=== PATIENT | male | born 1955 | race Asian ===

== ENCOUNTER 2018-08-29 08:07 | Inpatient (IN) | payer BC ==
[2018-08-29 09:19] LABS: ADD MAN DIFF? NO
[2018-08-29 09:24] LABS: WHITE BLOOD COUNT 8.4 10^3/ul (4.8-10.8)
[2018-08-29 09:24] LABS: BASOPHIL # 0.1 10^3/ul (0.0-0.1); BASOPHILS % 1.3 % (0.0-2.0); EOSINOPHILS # 0.6 10^3/ul (0.0-0.5); HEMATOCRIT 36.5 % (42.0-52.0); HEMOGLOBIN 11.3 g/dl (14.0-18.0); LYMPHOCYTES # 1.9 10^3/ul (0.8-2.9); MEAN CORPUSCULAR HEMOGLOBIN 22.5 pg (29.0-33.0); MEAN CORPUSCULAR VOLUME 72.7 fl (82.0-101.0); MEAN PLATELET VOLUME 9.8 fl (7.4-10.4); MONOCYTE # 0.5 10^3/ul (0.3-0.9); MONOCYTES % 6.3 % (0.0-11.0); NEUTROPHIL # 5.3 10^3/ul (1.6-7.5); NEUTROPHILS % 63.2 % (39.0-77.0); PLATELET COUNT 386 10^3/UL (140-415); RED BLOOD COUNT 5.02 10^6/ul (4.70-6.10); RED CELL DISTRIBUTION WIDTH 16.7 % (11.5-14.5)
[2018-08-29 09:42] LABS: INR 0.86; PARTIAL THROMBOPLASTIN TIME 33.5 Sec (23.0-35.0); PROTIME 11.8 Sec (11.9-14.9); PT RATIO 0.9
[2018-08-29 10:03] LABS: ANION GAP 12 (5-13); BLOOD UREA NITROGEN 18 mg/dl (7-20); CALCIUM 9.4 mg/dl (8.4-10.2); CARBON DIOXIDE 29 mmol/L (21-31); CHLORIDE 100 mmol/L (97-110); CHOL/HDL RATIO 6.1 RATIO; CHOLESTEROL 197 mg/dl (100-200); Estimated GFR 46 mL/min (>60); GLUCOSE 116 mg/dl (70-220); HDL CHOLESTEROL 32 mg/dl (30-78); LDL CHOLESTEROL,CALCULATED 123 mg/dl; SODIUM 141 mmol/L (135-144); TRIGLYCERIDES 211 mg/dl (0-149)
[2018-08-29 10:18] LABS: CREATININE 1.54 mg/dl (0.61-1.24)
[2018-08-29] MEDS ORDERED: MIDAZOLAM 1 MG/ML 2 ML INJ (11:13)
[2018-08-29] MEDS ORDERED: HEPARIN 1000 UNITS/ML 10 ML INJ ×2 (11:13)
[2018-08-29] MEDS ORDERED: FENTAnyl 50 MCG/ML VIAL (11:13)
[2018-08-29] MEDS ORDERED: LIDOCAINE 1% (MDV) 20 ML INJ (11:13)
[2018-08-29] MEDS ORDERED: VERAPAMIL 5 MG INJ (11:13)
[2018-08-29] MEDS ORDERED: NITROGLYCERIN (IC) 100 MCG/ML INJ (11:13)
[2018-08-29] MEDS ORDERED: IODIXANOL LOCM 100 ML BTL (11:13)
[2018-08-29] MEDS: SOD CHLORIDE 0.9% 1,000 ML IV (15:23)
[2018-08-29] MEDS: METOPROLOL (XL) 25 MG TAB PO (20:55)
[2018-08-29] MEDS: ATORVASTATIN 40 MG TAB PO (20:55)
[2018-08-30] MEDS: METOPROLOL (XL) 25 MG TAB PO (08:36)
[2018-08-30] MEDS: AMLODIPINE 10 MG TAB PO (08:37)
[2018-08-30 16:37] LABS: ADD MAN DIFF? NO
[2018-08-30 16:39] LABS: WHITE BLOOD COUNT 9.8 10^3/ul (4.8-10.8)
[2018-08-30 16:39] LABS: BASOPHIL # 0.1 10^3/ul (0.0-0.1); EOSINOPHILS # 0.4 10^3/ul (0.0-0.5); EOSINOPHILS % 3.7 % (0.0-7.0); HEMATOCRIT 36.9 % (42.0-52.0); HEMOGLOBIN 11.6 g/dl (14.0-18.0); LYMPHOCYTES # 2.1 10^3/ul (0.8-2.9); LYMPHOCYTES % 21.7 % (15.0-51.0); MEAN CORPUSCULAR HEMOGLOBIN 22.6 pg (29.0-33.0); MEAN CORPUSCULAR HGB CONC 31.4 g/dl (32.0-37.0); MEAN CORPUSCULAR VOLUME 71.9 fl (82.0-101.0); MEAN PLATELET VOLUME 9.7 fl (7.4-10.4); MONOCYTE # 0.6 10^3/ul (0.3-0.9); MONOCYTES % 6.3 % (0.0-11.0); NEUTROPHIL # 6.5 10^3/ul (1.6-7.5); NEUTROPHILS % 66.8 % (39.0-77.0); PLATELET COUNT 374 10^3/UL (140-415); RED BLOOD COUNT 5.13 10^6/ul (4.70-6.10); RED CELL DISTRIBUTION WIDTH 16.4 % (11.5-14.5)
[2018-08-30 17:00] LABS: ANION GAP 9 (5-13); BLOOD UREA NITROGEN 18 mg/dl (7-20); CALCIUM 9.2 mg/dl (8.4-10.2); CARBON DIOXIDE 27 mmol/L (21-31); CHLORIDE 102 mmol/L (97-110); CREATININE 1.43 mg/dl (0.61-1.24); Estimated GFR 50 mL/min (>60); GLUCOSE 99 mg/dl (70-220); POTASSIUM 3.6 mmol/L (3.5-5.1); SODIUM 138 mmol/L (135-144)
[2018-08-30] MEDS: ATORVASTATIN 40 MG TAB PO (20:57)
[2018-08-31 06:57] LABS: ADD MAN DIFF? NO
[2018-08-31 07:04] LABS: WHITE BLOOD COUNT 10.5 10^3/ul (4.8-10.8)
[2018-08-31 07:04] LABS: BASOPHIL # 0.1 10^3/ul (0.0-0.1); BASOPHILS % 1.1 % (0.0-2.0); EOSINOPHILS # 0.5 10^3/ul (0.0-0.5); EOSINOPHILS % 5.1 % (0.0-7.0); HEMATOCRIT 34.7 % (42.0-52.0); HEMOGLOBIN 11.1 g/dl (14.0-18.0); LYMPHOCYTES # 2.1 10^3/ul (0.8-2.9); LYMPHOCYTES % 20.1 % (15.0-51.0); MEAN CORPUSCULAR HEMOGLOBIN 22.9 pg (29.0-33.0); MEAN CORPUSCULAR VOLUME 71.7 fl (82.0-101.0); MEAN PLATELET VOLUME 10.6 fl (7.4-10.4); MONOCYTE # 0.8 10^3/ul (0.3-0.9); MONOCYTES % 7.3 % (0.0-11.0); NEUTROPHILS % 66.1 % (39.0-77.0); PLATELET COUNT 358 10^3/UL (140-415); RED BLOOD COUNT 4.84 10^6/ul (4.70-6.10); RED CELL DISTRIBUTION WIDTH 16.6 % (11.5-14.5)
[2018-08-31 07:37] LABS: ANION GAP 10 (5-13); BLOOD UREA NITROGEN 19 mg/dl (7-20); CALCIUM 8.9 mg/dl (8.4-10.2); CARBON DIOXIDE 26 mmol/L (21-31); CHLORIDE 102 mmol/L (97-110); CREATININE 1.61 mg/dl (0.61-1.24); Estimated GFR 44 mL/min (>60); GLUCOSE 106 mg/dl (70-220); POTASSIUM 3.7 mmol/L (3.5-5.1); SODIUM 138 mmol/L (135-144)
[2018-08-31] MEDS: METOPROLOL (XL) 25 MG TAB PO (08:07)
[2018-08-31] MEDS: AMLODIPINE 10 MG TAB PO (08:07)
[2018-08-31] MEDS: SOD CHLORIDE 0.9% 1,000 ML IV (17:17)
[2018-08-31] MEDS: ATORVASTATIN 40 MG TAB PO (22:21)
[2018-09-01] MEDS ORDERED: PHENYLephrine 20MG IN 250 ML 250 ML IV (06:30)
[2018-09-01] MEDS ORDERED: EPINEPHrine 4 MG in DEXTROSE 5% 246 ML IV (06:30)
[2018-09-01] MEDS ORDERED: INSULIN HUMAN REGULAR 100 UNIT in SOD CHLORIDE 0.9% 99 ML IV (06:30)
[2018-09-01] MEDS ORDERED: DOPamine-D5W 1.6 MG/ML 250 ML (07:00)
[2018-09-01] MEDS ORDERED: INSULIN REGULAR, HUMAN 100 UNIT/1 ML 3ML VIAL (07:00)
[2018-09-01] MEDS ORDERED: NITROGLYCERIN 50 MG/D5W 250 ML BTL (07:00)
[2018-09-01] MEDS: VANCOMYCIN 1 GM INJ (07:12)
[2018-09-01] MEDS: PAPAVERINE 60 MG INJ (07:12)
[2018-09-01] MEDS: HEPARIN 1000 UNITS/ML 10 ML INJ (07:13)
[2018-09-01] MEDS ORDERED: MIDAZOLAM 5 ML ×2 (07:37→09:50)
[2018-09-01] MEDS ORDERED: PHENYLephrine (100 MCG/ML) 5ML SYG ×2 (07:40→10:13)
[2018-09-01] MEDS ORDERED: HEPARIN 1000 UNITS/ML 10 ML INJ ×3 (07:43→09:59)
[2018-09-01] MEDS ORDERED: POTASSIUM CHLORIDE 40 MEQ INJ (07:43)
[2018-09-01] MEDS ORDERED: CA CHLORIDE 10% 10 ML SYRINGE (07:44)
[2018-09-01] MEDS ORDERED: ALBUMIN HUMAN 25% 100 ML (07:44)
[2018-09-01] MEDS ORDERED: MAGNESIUM SULFATE (MG) 50% 10 ML INJ (07:44)
[2018-09-01] MEDS ORDERED: LIDOCAINE 100 MG SYRINGE (07:44)
[2018-09-01] MEDS ORDERED: PHENYLephrine 10 MG INJ ×2 (07:45)
[2018-09-01] MEDS ORDERED: MANNITOL 20% 500 ML (07:45)
[2018-09-01] MEDS ORDERED: NA BICARBONATE 8.4% 50 ML SYG (07:45)
[2018-09-01] MEDS ORDERED: AMINOCAPROIC ACID 5 GM INJ (07:45)
[2018-09-01] MEDS ORDERED: CEFAZOLIN 1 GM INJ ×2 (08:26→11:32)
[2018-09-01] MEDS: AMLODIPINE 10 MG TAB PO (09:00)
[2018-09-01] MEDS: METOPROLOL (XL) 25 MG TAB PO (09:00)
[2018-09-01] MEDS ORDERED: FUROSEMIDE 20 MG INJ ×3 (11:17→13:14)
[2018-09-01 11:29] LABS: IMMEDIATE SPIN CROSSMATCH 1
[2018-09-01] MEDS ORDERED: PROTAMINE 250 MG INJ (12:55)
[2018-09-01 12:59] LABS: TYPE AND SCREEN 1
[2018-09-01 12:59] LABS: IMMEDIATE SPIN CROSSMATCH 1 6
[2018-09-01] MEDS ORDERED: ETOMIDATE 20 MG INJ (14:19)
[2018-09-01] MEDS ORDERED: ROCURONIUM 50 MG INJ (14:19)
[2018-09-01] MEDS ORDERED: LIDOCAINE 2% (SDV) 5 ML INJ (14:19)
[2018-09-01] MEDS ORDERED: morphine (1 MG/ML) 10ML SYRINGE IV ×2 (15:00)
[2018-09-01] MEDS ORDERED: MEPERIDINE 25 MG INJ IV (15:00)
[2018-09-01] MEDS ORDERED: ONDANSETRON 4 MG INJ IV (15:00)
[2018-09-01] MEDS ORDERED: DIPHENHYDRAMINE 50 MG INJ IV (15:00)
[2018-09-01] MEDS ORDERED: ACETAMINOPHEN 325 MG TAB PO (15:30)
[2018-09-01 15:46] LABS: ADD MAN DIFF? NO
[2018-09-01 15:49] LABS: ABNORMAL IP MESSAGE 1; HEMATOCRIT 34.4 % (42.0-52.0); HEMOGLOBIN 11.4 g/dl (14.0-18.0); MEAN CORPUSCULAR HEMOGLOBIN 24.6 pg (29.0-33.0); MEAN CORPUSCULAR HGB CONC 33.1 g/dl (32.0-37.0); MEAN CORPUSCULAR VOLUME 74.1 fl (82.0-101.0); MEAN PLATELET VOLUME 9.3 fl (7.4-10.4); PLATELET COUNT 223 10^3/UL (140-415); POSITIVE DIFF @See below; RED BLOOD COUNT 4.64 10^6/ul (4.70-6.10); RED CELL DISTRIBUTION WIDTH 17.7 % (11.5-14.5)
[2018-09-01 15:49] LABS: WHITE BLOOD COUNT 27.1 10^3/ul (4.8-10.8)
[2018-09-01 15:54] LABS: MODE VENT - AC; MetHgb Mixed Venous 0.3 %; Mixed Venous COHb 0.3 %; Mixed Venous Fraction OxyHgb 77.6 %; Mixed Venous Oxygen Sat 78.1 mmHG (65.0-75.0); Mixed Venous Total Hemglobin 12.4 g/dl; Sample Type BLMV; Site PAL
[2018-09-01 15:56] LABS: AADO2 Arterial 307.6 mmHg (7.0-24.0); Arterial Base Excess 1.8 mmol/L (-3.0-3); Arterial Blood Gas Oxygen Sat 98.8 mmHG (95.0-98.0); Arterial COHb 0.4 % (0.0-3.0); Arterial Fraction of Oxyhgb 97.9 % (93.0-99.0); Arterial HCO3 26.1 mmol/L (22.0-26.0); Arterial MetHb 0.5 % (0.0-1.5); MODE VENT - AC; Site A-Line
[2018-09-01 16:09] LABS: INR 1.25; PROTIME 15.8 Sec (11.9-14.9); PT RATIO 1.2
[2018-09-01 16:10] LABS: PARTIAL THROMBOPLASTIN TIME 32.6 Sec (23.0-35.0)
[2018-09-01 16:33] LABS: ANION GAP 12 (5-13); BLOOD UREA NITROGEN 20 mg/dl (7-20); CALCIUM 8.9 mg/dl (8.4-10.2); CARBON DIOXIDE 26 mmol/L (21-31); CHLORIDE 105 mmol/L (97-110); CREATININE 1.51 mg/dl (0.61-1.24); Estimated GFR 47 mL/min (>60); GLUCOSE 55 mg/dl (70-220); MAGNESIUM 3.3 mg/dl (1.7-2.5); POTASSIUM 3.3 mmol/L (3.5-5.1); SODIUM 143 mmol/L (135-144)
[2018-09-01] MEDS: POTASSIUM CHLORIDE 40 MEQ, CALCIUM CHLORIDE 10% 1 GM in DEXTROSE 5%-0.225% NACL 1,000 ML IV (16:56)
[2018-09-01] MEDS: POTASSIUM CHLORIDE 50 ML IVPB ×3 (16:56→19:12)
[2018-09-01 17:00] LABS: ANISOCYTOSIS 1+ (0-0); BAND NEUTROPHILS % (M) 4 % (0-4); BURR CELLS 1+ (0-0); EOSINOPHILS % (M) 1 % (0-7); GIANT THROMBO% (M) 1 % (0-0); HYPOCHROMASIA 1+ (0-0); LYMPHOCYTES #M 2.9 10^3/ul (0.8-2.9); LYMPHOCYTES % (M) 11 % (15-51); MONOCYTE #M 3.2 10^3/ul (0.3-0.9); MONOCYTES % (M) 12 % (0-11); PLATELET MORPHOLOGY COMMENT @See below; POIKILOCYTOSIS 1+ (0-0); POLYCHROMASIA 1+ (0-0); SCHISTOCYTES 1+ (0-0); SEG NEUT #M 19.8 10^3/ul (1.6-7.5); SEGMENTED NEUTROPHILS (M) % 72 % (39-77); SMUDGE%M 2 % (0-0); SPHEROCYTES 1+ (0-0)
[2018-09-01] MEDS: DOPamine-D5W 1.6 MG/ML 250 ML IV (17:21)
[2018-09-01] MEDS: morphine 4 MG/ML VIAL IV (18:17)
[2018-09-01] MEDS: NITROGLYCERIN 50 MG/D5W (PMX) 250 ML IV (18:20)
[2018-09-01] MEDS ORDERED: NORepinephrine 8MG/250 ML (PMX 250 ML (18:37)
[2018-09-01] MEDS: CEFAZOLIN 1 GM/50 ML (PMX) 50 ML IVPB (19:30)
[2018-09-01] MEDS: FAMOTIDINE 20 MG INJ IV (20:15)
[2018-09-01] MEDS: ATORVASTATIN 40 MG TAB PO (21:00)
[2018-09-02] MEDS: ACETAMINOPHEN 650 MG SUPP PR ×2 (00:02→01:00)
[2018-09-02 00:52] LABS: POTASSIUM 4.9 mmol/L (3.5-5.1)
[2018-09-02 01:04] LABS: ADD MAN DIFF? NO
[2018-09-02 01:09] LABS: BASOPHIL # 0.1 10^3/ul (0.0-0.1); BASOPHILS % 0.3 % (0.0-2.0); HEMATOCRIT 32.6 % (42.0-52.0); HEMOGLOBIN 10.6 g/dl (14.0-18.0); LYMPHOCYTES # 0.6 10^3/ul (0.8-2.9); LYMPHOCYTES % 3.8 % (15.0-51.0); MEAN CORPUSCULAR HEMOGLOBIN 24.1 pg (29.0-33.0); MEAN CORPUSCULAR HGB CONC 32.5 g/dl (32.0-37.0); MEAN CORPUSCULAR VOLUME 74.3 fl (82.0-101.0); MEAN PLATELET VOLUME 10.3 fl (7.4-10.4); MONOCYTE # 1.3 10^3/ul (0.3-0.9); MONOCYTES % 8.2 % (0.0-11.0); NEUTROPHIL # 14.1 10^3/ul (1.6-7.5); NEUTROPHILS % 87.2 % (39.0-77.0); PLATELET COUNT 216 10^3/UL (140-415); RED BLOOD COUNT 4.39 10^6/ul (4.70-6.10); RED CELL DISTRIBUTION WIDTH 17.2 % (11.5-14.5)
[2018-09-02 01:09] LABS: WHITE BLOOD COUNT 16.2 10^3/ul (4.8-10.8)
[2018-09-02] MEDS: ALBUMIN HUMAN 5% 250 ML IV ×3 (01:16→13:00)
[2018-09-02 01:18] LABS: ANION GAP 7 (5-13); BLOOD UREA NITROGEN 18 mg/dl (7-20); CALCIUM 8.9 mg/dl (8.4-10.2); CARBON DIOXIDE 29 mmol/L (21-31); CHLORIDE 103 mmol/L (97-110); CREATININE 1.57 mg/dl (0.61-1.24); Estimated GFR 45 mL/min (>60); GLUCOSE 201 mg/dl (70-220); MAGNESIUM 2.2 mg/dl (1.7-2.5); POTASSIUM 4.9 mmol/L (3.5-5.1); SODIUM 139 mmol/L (135-144)
[2018-09-02] MEDS: CEFAZOLIN 1 GM/50 ML (PMX) 50 ML IVPB ×2 (03:17→11:36)
[2018-09-02] MEDS: POTASSIUM CHLORIDE 40 MEQ, CALCIUM CHLORIDE 10% 1 GM in DEXTROSE 5%-0.225% NACL 1,000 ML IV ×3 (03:19→21:36)
[2018-09-02] MEDS: DOPamine-D5W 1.6 MG/ML 250 ML IV ×2 (03:31→09:33)
[2018-09-02 04:42] LABS: AADO2 Arterial 75.3 mmHg (7.0-24.0); Arterial Base Excess 2.2 mmol/L (-3.0-3); Arterial Blood Gas Oxygen Sat 97.2 mmHG (95.0-98.0); Arterial COHb 0 % (0.0-3.0); Arterial Fraction of Oxyhgb 96.8 % (93.0-99.0); Arterial HCO3 25.7 mmol/L (22.0-26.0); Arterial MetHb 0.4 % (0.0-1.5); Arterial pCO2 36.3 mmhg (35-45); MODE VENT - AC; Site A-Line
[2018-09-02 05:13] LABS: ADD MAN DIFF? NO
[2018-09-02 05:19] LABS: BASOPHILS % 0.2 % (0.0-2.0); HEMATOCRIT 31.7 % (42.0-52.0); HEMOGLOBIN 10.5 g/dl (14.0-18.0); LYMPHOCYTES # 0.7 10^3/ul (0.8-2.9); LYMPHOCYTES % 4.7 % (15.0-51.0); MEAN CORPUSCULAR HEMOGLOBIN 24.6 pg (29.0-33.0); MEAN CORPUSCULAR HGB CONC 33.1 g/dl (32.0-37.0); MEAN CORPUSCULAR VOLUME 74.4 fl (82.0-101.0); MEAN PLATELET VOLUME 11.5 fl (7.4-10.4); MONOCYTE # 1.4 10^3/ul (0.3-0.9); MONOCYTES % 8.7 % (0.0-11.0); NEUTROPHIL # 13.5 10^3/ul (1.6-7.5); PLATELET COUNT 213 10^3/UL (140-415); RED BLOOD COUNT 4.26 10^6/ul (4.70-6.10); RED CELL DISTRIBUTION WIDTH 17.6 % (11.5-14.5)
[2018-09-02 05:19] LABS: WHITE BLOOD COUNT 15.7 10^3/ul (4.8-10.8)
[2018-09-02 05:38] LABS: INR 1.11; PROTIME 14.4 Sec (11.9-14.9); PT RATIO 1.1
[2018-09-02 05:39] LABS: PARTIAL THROMBOPLASTIN TIME 34.8 Sec (23.0-35.0)
[2018-09-02 05:54] LABS: ANION GAP 8 (5-13); BLOOD UREA NITROGEN 18 mg/dl (7-20); CARBON DIOXIDE 29 mmol/L (21-31); CHLORIDE 103 mmol/L (97-110); CREATININE 1.61 mg/dl (0.61-1.24); Estimated GFR 44 mL/min (>60); GLUCOSE 215 mg/dl (70-220); MAGNESIUM 2.1 mg/dl (1.7-2.5); POTASSIUM 5.1 mmol/L (3.5-5.1); SODIUM 140 mmol/L (135-144)
[2018-09-02] MEDS: METOPROLOL (XL) 25 MG TAB PO (08:53)
[2018-09-02] MEDS: AMLODIPINE 10 MG TAB PO (08:53)
[2018-09-02] MEDS: FAMOTIDINE 20 MG TAB PO (08:55)
[2018-09-02] MEDS: FAMOTIDINE 20 MG INJ IV (08:55)
[2018-09-02] MEDS: ONDANSETRON 4 MG INJ IV (10:27)
[2018-09-02 12:44] LABS: POTASSIUM 4.8 mmol/L (3.5-5.1)
[2018-09-02] MEDS: morphine 4 MG/ML VIAL IV ×3 (16:29→22:45)
[2018-09-02 16:49] LABS: HEMATOCRIT 28.9 % (42.0-52.0)
[2018-09-02 16:54] LABS: INR 1.27; PT RATIO 1.3
[2018-09-02 16:55] LABS: PARTIAL THROMBOPLASTIN TIME 37.7 Sec (23.0-35.0)
[2018-09-02] MEDS ORDERED: LORATADINE 10 MG TAB PO (20:00)
[2018-09-02] MEDS: ASPIRIN 81 MG TAB PO (20:11)
[2018-09-02] MEDS: ATORVASTATIN 40 MG TAB PO (20:11)
[2018-09-03] MEDS: morphine 4 MG/ML VIAL IV ×5 (00:54→17:38)
[2018-09-03 04:51] LABS: ADD MAN DIFF? NO
[2018-09-03 04:54] LABS: WHITE BLOOD COUNT 17.1 10^3/ul (4.8-10.8)
[2018-09-03 04:54] LABS: ABNORMAL IP MESSAGE 1; BASOPHIL # 0.1 10^3/ul (0.0-0.1); BASOPHILS % 0.5 % (0.0-2.0); EOSINOPHILS % 0.2 % (0.0-7.0); HEMATOCRIT 28.3 % (42.0-52.0); HEMOGLOBIN 9.3 g/dl (14.0-18.0); LYMPHOCYTES # 1.5 10^3/ul (0.8-2.9); LYMPHOCYTES % 8.8 % (15.0-51.0); MEAN CORPUSCULAR HEMOGLOBIN 24.9 pg (29.0-33.0); MEAN CORPUSCULAR HGB CONC 32.9 g/dl (32.0-37.0); MEAN CORPUSCULAR VOLUME 75.9 fl (82.0-101.0); MEAN PLATELET VOLUME 10.4 fl (7.4-10.4); MONOCYTE # 1.7 10^3/ul (0.3-0.9); MONOCYTES % 9.9 % (0.0-11.0); NEUTROPHIL # 13.7 10^3/ul (1.6-7.5); PLATELET COUNT 145 10^3/UL (140-415); POSITIVE DIFF @See below; RED BLOOD COUNT 3.73 10^6/ul (4.70-6.10); RED CELL DISTRIBUTION WIDTH 18.1 % (11.5-14.5)
[2018-09-03 05:23] LABS: ANION GAP 12 (5-13); BLOOD UREA NITROGEN 21 mg/dl (7-20); CARBON DIOXIDE 29 mmol/L (21-31); CHLORIDE 101 mmol/L (97-110); Estimated GFR 44 mL/min (>60); GLUCOSE 140 mg/dl (70-220); POTASSIUM 4.9 mmol/L (3.5-5.1); SODIUM 142 mmol/L (135-144)
[2018-09-03] MEDS: FAMOTIDINE 20 MG INJ IV (08:05)
[2018-09-03] MEDS: FAMOTIDINE 20 MG TAB PO (08:05)
[2018-09-03] MEDS: ASPIRIN 81 MG TAB PO (08:13)
[2018-09-03] MEDS: POTASSIUM CHLORIDE 40 MEQ, CALCIUM CHLORIDE 10% 1 GM in DEXTROSE 5%-0.225% NACL 1,000 ML IV ×2 (10:04→20:19)
[2018-09-03] MEDS: METOPROLOL (XL) 25 MG TAB PO ×2 (10:24→20:07)
[2018-09-03] MEDS: AMLODIPINE 10 MG TAB PO (10:28)
[2018-09-03] MEDS: AMIODARONE 150MG/D5W BOLUS 100 ML IV (11:46)
[2018-09-03] MEDS: ATORVASTATIN 40 MG TAB PO (20:07)
[2018-09-03] MEDS: AMIODARONE 200 MG TAB PO (20:07)
[2018-09-03] MEDS: ACETAMINOPHEN 325 MG TAB PO (20:08)
[2018-09-03 20:21] LABS: ANION GAP 8 (5-13); BLOOD UREA NITROGEN 25 mg/dl (7-20); CALCIUM 8.9 mg/dl (8.4-10.2); CARBON DIOXIDE 29 mmol/L (21-31); CHLORIDE 99 mmol/L (97-110); CREATININE 1.42 mg/dl (0.61-1.24); Estimated GFR 51 mL/min (>60); GLUCOSE 148 mg/dl (70-220); MAGNESIUM 2.3 mg/dl (1.7-2.5); PHOSPHORUS 3.9 mg/dl (2.5-4.9); POTASSIUM 4.7 mmol/L (3.5-5.1); SODIUM 136 mmol/L (135-144)
[2018-09-04 05:03] LABS: ADD MAN DIFF? NO
[2018-09-04 05:08] LABS: BASOPHIL # 0.1 10^3/ul (0.0-0.1); BASOPHILS % 0.7 % (0.0-2.0); EOSINOPHILS # 0.4 10^3/ul (0.0-0.5); EOSINOPHILS % 2.2 % (0.0-7.0); HEMOGLOBIN 9.6 g/dl (14.0-18.0); LYMPHOCYTES # 1.9 10^3/ul (0.8-2.9); LYMPHOCYTES % 12.2 % (15.0-51.0); MEAN CORPUSCULAR HEMOGLOBIN 24.4 pg (29.0-33.0); MEAN CORPUSCULAR VOLUME 76.3 fl (82.0-101.0); MEAN PLATELET VOLUME 11.2 fl (7.4-10.4); MONOCYTE # 1.4 10^3/ul (0.3-0.9); MONOCYTES % 9.1 % (0.0-11.0); NEUTROPHIL # 11.8 10^3/ul (1.6-7.5); NEUTROPHILS % 75.2 % (39.0-77.0); PLATELET COUNT 160 10^3/UL (140-415); RED BLOOD COUNT 3.93 10^6/ul (4.70-6.10); RED CELL DISTRIBUTION WIDTH 17.8 % (11.5-14.5)
[2018-09-04 05:08] LABS: WHITE BLOOD COUNT 15.7 10^3/ul (4.8-10.8)
[2018-09-04 05:33] LABS: ANION GAP 10 (5-13); BLOOD UREA NITROGEN 25 mg/dl (7-20); CALCIUM 8.9 mg/dl (8.4-10.2); CARBON DIOXIDE 29 mmol/L (21-31); CHLORIDE 100 mmol/L (97-110); CREATININE 1.36 mg/dl (0.61-1.24); Estimated GFR 53 mL/min (>60); GLUCOSE 157 mg/dl (70-220); POTASSIUM 4.2 mmol/L (3.5-5.1); SODIUM 139 mmol/L (135-144)
[2018-09-04] MEDS: POTASSIUM CHLORIDE 40 MEQ, CALCIUM CHLORIDE 10% 1 GM in DEXTROSE 5%-0.225% NACL 1,000 ML IV ×2 (06:36→16:58)
[2018-09-04] MEDS: ASPIRIN 81 MG TAB PO (08:23)
[2018-09-04] MEDS: AMIODARONE 200 MG TAB PO ×2 (08:24→21:05)
[2018-09-04] MEDS: AMLODIPINE 5 MG TAB PO (08:24)
[2018-09-04] MEDS: FAMOTIDINE 20 MG TAB PO (08:24)
[2018-09-04] MEDS: FAMOTIDINE 20 MG INJ IV (08:24)
[2018-09-04] MEDS: METOPROLOL (XL) 25 MG TAB PO ×2 (09:00→21:06)
[2018-09-04] MEDS: morphine 4 MG/ML VIAL IV ×2 (10:47→17:29)
[2018-09-04] MEDS ORDERED: ZOLPIDEM 5 MG TAB PO (20:30)
[2018-09-04] MEDS: ATORVASTATIN 40 MG TAB PO (21:05)
[2018-09-05 04:42] LABS: ADD MAN DIFF? NO
[2018-09-05 04:44] LABS: WHITE BLOOD COUNT 14.8 10^3/ul (4.8-10.8)
[2018-09-05 04:44] LABS: BASOPHIL # 0.1 10^3/ul (0.0-0.1); BASOPHILS % 0.8 % (0.0-2.0); EOSINOPHILS # 0.5 10^3/ul (0.0-0.5); HEMATOCRIT 30.5 % (42.0-52.0); HEMOGLOBIN 9.8 g/dl (14.0-18.0); LYMPHOCYTES # 1.8 10^3/ul (0.8-2.9); MEAN CORPUSCULAR HEMOGLOBIN 24.3 pg (29.0-33.0); MEAN CORPUSCULAR HGB CONC 32.1 g/dl (32.0-37.0); MEAN CORPUSCULAR VOLUME 75.5 fl (82.0-101.0); MEAN PLATELET VOLUME 10.8 fl (7.4-10.4); MONOCYTE # 1.4 10^3/ul (0.3-0.9); MONOCYTES % 9.7 % (0.0-11.0); NEUTROPHIL # 10.9 10^3/ul (1.6-7.5); PLATELET COUNT 223 10^3/UL (140-415); RED BLOOD COUNT 4.04 10^6/ul (4.70-6.10); RED CELL DISTRIBUTION WIDTH 17.4 % (11.5-14.5)
[2018-09-05 05:03] LABS: ANION GAP 9 (5-13); BLOOD UREA NITROGEN 22 mg/dl (7-20); CALCIUM 8.5 mg/dl (8.4-10.2); CARBON DIOXIDE 28 mmol/L (21-31); CHLORIDE 101 mmol/L (97-110); CREATININE 1.35 mg/dl (0.61-1.24); Estimated GFR 54 mL/min (>60); GLUCOSE 112 mg/dl (70-220); POTASSIUM 4.1 mmol/L (3.5-5.1); SODIUM 138 mmol/L (135-144)
[2018-09-05] MEDS: METOPROLOL (XL) 25 MG TAB PO ×2 (08:28→21:00)
[2018-09-05] MEDS: AMIODARONE 200 MG TAB PO ×2 (08:30→21:16)
[2018-09-05] MEDS: ASPIRIN 81 MG TAB PO (08:31)
[2018-09-05] MEDS: FAMOTIDINE 20 MG TAB PO (08:31)
[2018-09-05] MEDS: POTASSIUM CHLORIDE 50 ML IVPB ×2 (08:32→09:52)
[2018-09-05 11:19] LABS: HEMOGLOBIN A1C 5.9 % (0-5.9)
[2018-09-05] MEDS: DOCUSATE SODIUM 100 MG CAP PO (15:45)
[2018-09-05] MEDS: AL HYDROX/MG HYDROX/SIMETH 30 ML CUP PO (17:21)
[2018-09-05] MEDS: ATORVASTATIN 40 MG TAB PO (21:15)
[2018-09-06 06:15] LABS: ADD MAN DIFF? NO
[2018-09-06 06:23] LABS: ABNORMAL IP MESSAGE 1; BASOPHIL # 0.1 10^3/ul (0.0-0.1); BASOPHILS % 0.8 % (0.0-2.0); EOSINOPHILS # 0.6 10^3/ul (0.0-0.5); HEMATOCRIT 32.1 % (42.0-52.0); HEMOGLOBIN 10.4 g/dl (14.0-18.0); LYMPHOCYTES # 2.3 10^3/ul (0.8-2.9); LYMPHOCYTES % 14.7 % (15.0-51.0); MEAN CORPUSCULAR HEMOGLOBIN 24.2 pg (29.0-33.0); MEAN CORPUSCULAR HGB CONC 32.4 g/dl (32.0-37.0); MEAN CORPUSCULAR VOLUME 74.8 fl (82.0-101.0); MEAN PLATELET VOLUME 10.9 fl (7.4-10.4); MONOCYTE # 1.6 10^3/ul (0.3-0.9); NEUTROPHIL # 10.9 10^3/ul (1.6-7.5); NEUTROPHILS % 69.9 % (39.0-77.0); PLATELET COUNT 310 10^3/UL (140-415); POSITIVE DIFF @See below; RED BLOOD COUNT 4.29 10^6/ul (4.70-6.10); RED CELL DISTRIBUTION WIDTH 17.7 % (11.5-14.5)
[2018-09-06 06:23] LABS: WHITE BLOOD COUNT 15.5 10^3/ul (4.8-10.8)
[2018-09-06 06:34] LABS: ANION GAP 13 (5-13); BLOOD UREA NITROGEN 22 mg/dl (7-20); CALCIUM 8.5 mg/dl (8.4-10.2); CARBON DIOXIDE 27 mmol/L (21-31); CHLORIDE 100 mmol/L (97-110); CREATININE 1.44 mg/dl (0.61-1.24); Estimated GFR 50 mL/min (>60); GLUCOSE 106 mg/dl (70-220); POTASSIUM 4.2 mmol/L (3.5-5.1); SODIUM 140 mmol/L (135-144)
[2018-09-06] MEDS: ASPIRIN 81 MG TAB PO (08:21)
[2018-09-06] MEDS: METOPROLOL (XL) 25 MG TAB PO ×2 (08:21→20:42)
[2018-09-06] MEDS: DOCUSATE SODIUM 100 MG CAP PO (08:21)
[2018-09-06] MEDS: AMIODARONE 200 MG TAB PO ×2 (08:21→20:42)
[2018-09-06] MEDS: AL HYDROX/MG HYDROX/SIMETH 30 ML CUP PO (10:23)
[2018-09-06] MEDS ORDERED: SOD CHLORIDE 0.9% 500 ML IV (14:00)
[2018-09-06] MEDS: SOD CHLORIDE 0.9% 500 ML IV (14:19)
[2018-09-06] MEDS ORDERED: LACTULOSE 30ML CUP PO (14:30)
[2018-09-06] MEDS: ATORVASTATIN 40 MG TAB PO (20:40)
[2018-09-06] MEDS: LUBIPROSTONE 24 MCG CAP PO (20:41)
[2018-09-07 05:50] LABS: ADD MAN DIFF? NO
[2018-09-07 05:51] LABS: ABNORMAL IP MESSAGE 1; BASOPHIL # 0.1 10^3/ul (0.0-0.1); BASOPHILS % 0.7 % (0.0-2.0); EOSINOPHILS # 0.6 10^3/ul (0.0-0.5); EOSINOPHILS % 3.7 % (0.0-7.0); HEMATOCRIT 31.6 % (42.0-52.0); HEMOGLOBIN 10.2 g/dl (14.0-18.0); LYMPHOCYTES # 2.2 10^3/ul (0.8-2.9); LYMPHOCYTES % 13.2 % (15.0-51.0); MEAN CORPUSCULAR HEMOGLOBIN 24.3 pg (29.0-33.0); MEAN CORPUSCULAR HGB CONC 32.3 g/dl (32.0-37.0); MEAN CORPUSCULAR VOLUME 75.4 fl (82.0-101.0); MEAN PLATELET VOLUME 10.9 fl (7.4-10.4); MONOCYTE # 1.6 10^3/ul (0.3-0.9); MONOCYTES % 9.9 % (0.0-11.0); NEUTROPHIL # 11.7 10^3/ul (1.6-7.5); NEUTROPHILS % 71.7 % (39.0-77.0); NUCLEATED RED BLOOD CELLS% 0.1 /100WBC (0.0-0.0); PLATELET COUNT 347 10^3/UL (140-415); POSITIVE DIFF @See below; RED BLOOD COUNT 4.19 10^6/ul (4.70-6.10); RED CELL DISTRIBUTION WIDTH 17.6 % (11.5-14.5)
[2018-09-07 05:51] LABS: WHITE BLOOD COUNT 16.3 10^3/ul (4.8-10.8)
[2018-09-07 06:16] LABS: ANION GAP 12 (5-13); BLOOD UREA NITROGEN 19 mg/dl (7-20); CALCIUM 8.6 mg/dl (8.4-10.2); CARBON DIOXIDE 25 mmol/L (21-31); CHLORIDE 101 mmol/L (97-110); Estimated GFR 52 mL/min (>60); GLUCOSE 119 mg/dl (70-220); SODIUM 138 mmol/L (135-144)
[2018-09-07 06:17] LABS: POTASSIUM 4.2 mmol/L (3.5-5.1)
[2018-09-07] MEDS: LUBIPROSTONE 24 MCG CAP PO ×2 (08:20→21:24)
[2018-09-07] MEDS: DOCUSATE SODIUM 100 MG CAP PO (08:21)
[2018-09-07] MEDS: ASPIRIN 81 MG TAB PO (08:21)
[2018-09-07] MEDS: AMIODARONE 200 MG TAB PO ×2 (08:21→21:23)
[2018-09-07] MEDS: METOPROLOL (XL) 25 MG TAB PO ×2 (08:22→21:23)
[2018-09-07] MEDS: ATORVASTATIN 40 MG TAB PO (21:23)
[2018-09-08 06:06] LABS: ADD MAN DIFF? NO
[2018-09-08 06:13] LABS: WHITE BLOOD COUNT 15.7 10^3/ul (4.8-10.8)
[2018-09-08 06:13] LABS: BASOPHIL # 0.1 10^3/ul (0.0-0.1); BASOPHILS % 0.7 % (0.0-2.0); EOSINOPHILS # 0.7 10^3/ul (0.0-0.5); EOSINOPHILS % 4.2 % (0.0-7.0); HEMATOCRIT 32.1 % (42.0-52.0); HEMOGLOBIN 10.4 g/dl (14.0-18.0); LYMPHOCYTES % 12.8 % (15.0-51.0); MEAN CORPUSCULAR HEMOGLOBIN 24.4 pg (29.0-33.0); MEAN CORPUSCULAR HGB CONC 32.4 g/dl (32.0-37.0); MEAN CORPUSCULAR VOLUME 75.2 fl (82.0-101.0); MEAN PLATELET VOLUME 10.3 fl (7.4-10.4); MONOCYTE # 1.4 10^3/ul (0.3-0.9); MONOCYTES % 8.7 % (0.0-11.0); NEUTROPHIL # 11.4 10^3/ul (1.6-7.5); NEUTROPHILS % 72.8 % (39.0-77.0); NUCLEATED RED BLOOD CELLS% 0.1 /100WBC (0.0-0.0); PLATELET COUNT 421 10^3/UL (140-415); RED BLOOD COUNT 4.27 10^6/ul (4.70-6.10); RED CELL DISTRIBUTION WIDTH 17.9 % (11.5-14.5)
[2018-09-08 06:48] LABS: ANION GAP 14 (5-13); BLOOD UREA NITROGEN 17 mg/dl (7-20); CALCIUM 8.5 mg/dl (8.4-10.2); CARBON DIOXIDE 27 mmol/L (21-31); CHLORIDE 98 mmol/L (97-110); Estimated GFR 48 mL/min (>60); GLUCOSE 105 mg/dl (70-220); POTASSIUM 4.6 mmol/L (3.5-5.1); SODIUM 139 mmol/L (135-144)
[2018-09-08] MEDS: METOPROLOL (XL) 25 MG TAB PO ×2 (09:00→20:15)
[2018-09-08] MEDS: ASPIRIN 81 MG TAB PO (09:22)
[2018-09-08] MEDS: LUBIPROSTONE 24 MCG CAP PO ×2 (09:22→20:17)
[2018-09-08] MEDS: DOCUSATE SODIUM 100 MG CAP PO (09:22)
[2018-09-08] MEDS: AMIODARONE 200 MG TAB PO ×2 (09:23→20:17)
[2018-09-08] MEDS ORDERED: ZOLPIDEM 5 MG TAB PO (16:00)
[2018-09-08] MEDS: ATORVASTATIN 40 MG TAB PO (20:15)
[2018-09-09 05:39] LABS: ADD MAN DIFF? NO
[2018-09-09 05:49] LABS: BASOPHIL # 0.1 10^3/ul (0.0-0.1); BASOPHILS % 0.8 % (0.0-2.0); EOSINOPHILS # 0.8 10^3/ul (0.0-0.5); EOSINOPHILS % 5.2 % (0.0-7.0); HEMATOCRIT 30.1 % (42.0-52.0); HEMOGLOBIN 9.6 g/dl (14.0-18.0); LYMPHOCYTES # 2.2 10^3/ul (0.8-2.9); LYMPHOCYTES % 14.6 % (15.0-51.0); MEAN CORPUSCULAR HEMOGLOBIN 24.4 pg (29.0-33.0); MEAN CORPUSCULAR HGB CONC 31.9 g/dl (32.0-37.0); MEAN CORPUSCULAR VOLUME 76.4 fl (82.0-101.0); MEAN PLATELET VOLUME 10.7 fl (7.4-10.4); MONOCYTE # 1.4 10^3/ul (0.3-0.9); NEUTROPHIL # 10.6 10^3/ul (1.6-7.5); NEUTROPHILS % 69.5 % (39.0-77.0); PLATELET COUNT 471 10^3/UL (140-415); RED BLOOD COUNT 3.94 10^6/ul (4.70-6.10); RED CELL DISTRIBUTION WIDTH 17.8 % (11.5-14.5)
[2018-09-09 05:49] LABS: WHITE BLOOD COUNT 15.3 10^3/ul (4.8-10.8)
[2018-09-09 06:21] LABS: ANION GAP 14 (5-13); BLOOD UREA NITROGEN 16 mg/dl (7-20); CALCIUM 8.4 mg/dl (8.4-10.2); CARBON DIOXIDE 27 mmol/L (21-31); CHLORIDE 97 mmol/L (97-110); CREATININE 1.53 mg/dl (0.61-1.24); Estimated GFR 47 mL/min (>60); GLUCOSE 109 mg/dl (70-220); POTASSIUM 4.4 mmol/L (3.5-5.1); SODIUM 138 mmol/L (135-144)
[2018-09-09] MEDS: morphine LIQ (10 MG/5 ML) CUP PO (06:42)
[2018-09-09] MEDS: METOPROLOL (XL) 25 MG TAB PO ×2 (09:00→20:21)
[2018-09-09] MEDS: AMIODARONE 200 MG TAB PO ×2 (09:03→20:21)
[2018-09-09] MEDS: LUBIPROSTONE 24 MCG CAP PO ×2 (09:03→20:20)
[2018-09-09] MEDS: DOCUSATE SODIUM 100 MG CAP PO (09:06)
[2018-09-09] MEDS: ASPIRIN 81 MG TAB PO (09:06)
[2018-09-09] MEDS: POLYETHYLENE GLYCOL 17 GM PACKET PO ×2 (13:41→20:21)
[2018-09-09] MEDS: ATORVASTATIN 40 MG TAB PO (20:20)
[2018-09-09] MEDS: HYDROCODONE/APAP (5/325) TAB PO (22:11)
[2018-09-10 05:49] LABS: ADD MAN DIFF? NO
[2018-09-10 05:53] LABS: WHITE BLOOD COUNT 15.5 10^3/ul (4.8-10.8)
[2018-09-10 05:53] LABS: BASOPHIL # 0.1 10^3/ul (0.0-0.1); BASOPHILS % 0.8 % (0.0-2.0); EOSINOPHILS # 0.8 10^3/ul (0.0-0.5); EOSINOPHILS % 5.4 % (0.0-7.0); HEMATOCRIT 32.7 % (42.0-52.0); HEMOGLOBIN 10.3 g/dl (14.0-18.0); LYMPHOCYTES # 2.7 10^3/ul (0.8-2.9); LYMPHOCYTES % 17.6 % (15.0-51.0); MEAN CORPUSCULAR HEMOGLOBIN 24.2 pg (29.0-33.0); MEAN CORPUSCULAR HGB CONC 31.5 g/dl (32.0-37.0); MEAN CORPUSCULAR VOLUME 76.8 fl (82.0-101.0); MEAN PLATELET VOLUME 9.9 fl (7.4-10.4); MONOCYTE # 1.4 10^3/ul (0.3-0.9); MONOCYTES % 8.9 % (0.0-11.0); NEUTROPHIL # 10.3 10^3/ul (1.6-7.5); NEUTROPHILS % 66.5 % (39.0-77.0); PLATELET COUNT 534 10^3/UL (140-415); RED BLOOD COUNT 4.26 10^6/ul (4.70-6.10); RED CELL DISTRIBUTION WIDTH 18.1 % (11.5-14.5)
[2018-09-10 06:47] LABS: ANION GAP 14 (5-13); BLOOD UREA NITROGEN 15 mg/dl (7-20); CALCIUM 8.7 mg/dl (8.4-10.2); CARBON DIOXIDE 29 mmol/L (21-31); CHLORIDE 98 mmol/L (97-110); CREATININE 1.62 mg/dl (0.61-1.24); Estimated GFR 44 mL/min (>60); GLUCOSE 109 mg/dl (70-220); POTASSIUM 4.8 mmol/L (3.5-5.1); SODIUM 141 mmol/L (135-144)
[2018-09-10] MEDS: AMIODARONE 200 MG TAB PO ×2 (08:35→21:00)
[2018-09-10] MEDS: POLYETHYLENE GLYCOL 17 GM PACKET PO ×2 (08:35→22:06)
[2018-09-10] MEDS: ASPIRIN 81 MG TAB PO (08:35)
[2018-09-10] MEDS: LUBIPROSTONE 24 MCG CAP PO ×2 (08:35→22:06)
[2018-09-10] MEDS: METOPROLOL (XL) 25 MG TAB PO (08:35)
[2018-09-10] MEDS: DOCUSATE SODIUM 100 MG CAP PO (08:35)
[2018-09-10] MEDS: NEOMYC/POLYMYX/BACIT 30 GM OINT TOP (21:00)
[2018-09-10] MEDS: ATORVASTATIN 40 MG TAB PO (22:06)
[2018-09-11] MEDS: HYDROCODONE/APAP (5/325) TAB PO (00:56)
[2018-09-11 05:47] LABS: ADD MAN DIFF? NO
[2018-09-11 05:50] LABS: BASOPHIL # 0.1 10^3/ul (0.0-0.1); BASOPHILS % 0.9 % (0.0-2.0); EOSINOPHILS # 0.8 10^3/ul (0.0-0.5); EOSINOPHILS % 4.8 % (0.0-7.0); HEMATOCRIT 32.5 % (42.0-52.0); HEMOGLOBIN 10.2 g/dl (14.0-18.0); LYMPHOCYTES # 2.6 10^3/ul (0.8-2.9); LYMPHOCYTES % 16.1 % (15.0-51.0); MEAN CORPUSCULAR HEMOGLOBIN 23.9 pg (29.0-33.0); MEAN CORPUSCULAR HGB CONC 31.4 g/dl (32.0-37.0); MEAN CORPUSCULAR VOLUME 76.1 fl (82.0-101.0); MEAN PLATELET VOLUME 9.8 fl (7.4-10.4); MONOCYTE # 1.2 10^3/ul (0.3-0.9); MONOCYTES % 7.8 % (0.0-11.0); NEUTROPHIL # 11.1 10^3/ul (1.6-7.5); NEUTROPHILS % 69.8 % (39.0-77.0); PLATELET COUNT 565 10^3/UL (140-415); RED BLOOD COUNT 4.27 10^6/ul (4.70-6.10)
[2018-09-11 05:50] LABS: WHITE BLOOD COUNT 15.8 10^3/ul (4.8-10.8)
[2018-09-11 06:21] LABS: ANION GAP 10 (5-13); BLOOD UREA NITROGEN 14 mg/dl (7-20); CALCIUM 8.7 mg/dl (8.4-10.2); CARBON DIOXIDE 27 mmol/L (21-31); CHLORIDE 100 mmol/L (97-110); CREATININE 1.58 mg/dl (0.61-1.24); Estimated GFR 45 mL/min (>60); MAGNESIUM 2.4 mg/dl (1.7-2.5); POTASSIUM 4.5 mmol/L (3.5-5.1); SODIUM 137 mmol/L (135-144)
[2018-09-11 06:22] LABS: GLUCOSE 112 mg/dl (70-220)
[2018-09-11] MEDS: DOCUSATE SODIUM 100 MG CAP PO (08:26)
[2018-09-11] MEDS: LUBIPROSTONE 24 MCG CAP PO ×2 (08:26→21:13)
[2018-09-11] MEDS: ASPIRIN 81 MG TAB PO (08:26)
[2018-09-11] MEDS: METOPROLOL (XL) 25 MG TAB PO (08:27)
[2018-09-11] MEDS: POLYETHYLENE GLYCOL 17 GM PACKET PO ×2 (08:27→21:22)
[2018-09-11] MEDS: AMIODARONE 200 MG TAB PO ×2 (08:27→21:13)
[2018-09-11] MEDS: NEOMYC/POLYMYX/BACIT 30 GM OINT TOP ×2 (08:28→21:14)
[2018-09-11 19:53] LABS: ADD UMIC NO; UR ASCORBIC ACID NEGATIVE (NEGATIVE); UR BILIRUBIN (Dip) NEGATIVE (NEGATIVE); UR BLOOD (Dip) NEGATIVE (NEGATIVE); UR CLARITY CLEAR (CLEAR); UR COLOR STRAW (YELLOW); UR GLUCOSE (Dip) NEGATIVE (NEGATIVE); UR KETONES (Dip) NEGATIVE (NEGATIVE); UR LEUKOCYTE ESTERASE (Dip) NEGATIVE Leu/ul (NEGATIVE); UR NITRITE (Dip) NEGATIVE (NEGATIVE); UR TOTAL PROTEIN (Dip) NEGATIVE (NEGATIVE); UR UROBILINOGEN (Dip) NEGATIVE (NEGATIVE)
[2018-09-11] MEDS: ATORVASTATIN 40 MG TAB PO (21:13)
[2018-09-12 05:50] LABS: ADD MAN DIFF? NO
[2018-09-12 05:55] LABS: BASOPHIL # 0.1 10^3/ul (0.0-0.1); EOSINOPHILS # 0.5 10^3/ul (0.0-0.5); EOSINOPHILS % 3.9 % (0.0-7.0); HEMATOCRIT 32.8 % (42.0-52.0); HEMOGLOBIN 10.2 g/dl (14.0-18.0); LYMPHOCYTES # 2.1 10^3/ul (0.8-2.9); LYMPHOCYTES % 14.8 % (15.0-51.0); MEAN CORPUSCULAR HEMOGLOBIN 23.8 pg (29.0-33.0); MEAN CORPUSCULAR HGB CONC 31.1 g/dl (32.0-37.0); MEAN CORPUSCULAR VOLUME 76.5 fl (82.0-101.0); MEAN PLATELET VOLUME 9.7 fl (7.4-10.4); MONOCYTE # 1.1 10^3/ul (0.3-0.9); MONOCYTES % 7.8 % (0.0-11.0); NEUTROPHIL # 10.1 10^3/ul (1.6-7.5); NEUTROPHILS % 71.9 % (39.0-77.0); PLATELET COUNT 601 10^3/UL (140-415); RED BLOOD COUNT 4.29 10^6/ul (4.70-6.10); RED CELL DISTRIBUTION WIDTH 18.1 % (11.5-14.5)
[2018-09-12 06:29] LABS: ANION GAP 5 (5-13); BLOOD UREA NITROGEN 13 mg/dl (7-20); CALCIUM 8.7 mg/dl (8.4-10.2); CARBON DIOXIDE 27 mmol/L (21-31); CHLORIDE 107 mmol/L (97-110); CREATININE 1.65 mg/dl (0.61-1.24); Estimated GFR 43 mL/min (>60); GLUCOSE 109 mg/dl (70-220); POTASSIUM 4.6 mmol/L (3.5-5.1); SODIUM 139 mmol/L (135-144)
[2018-09-12] MEDS: METOPROLOL (XL) 25 MG TAB PO (09:00)
[2018-09-12] MEDS: ASPIRIN 81 MG TAB PO (09:01)
[2018-09-12] MEDS: LUBIPROSTONE 24 MCG CAP PO ×2 (09:01→20:35)
[2018-09-12] MEDS: DOCUSATE SODIUM 100 MG CAP PO (09:01)
[2018-09-12] MEDS: POLYETHYLENE GLYCOL 17 GM PACKET PO ×2 (09:01→20:35)
[2018-09-12] MEDS: NEOMYC/POLYMYX/BACIT 30 GM OINT TOP ×2 (09:02→20:37)
[2018-09-12] MEDS: AMIODARONE 200 MG TAB PO ×2 (09:02→20:35)
[2018-09-12] MEDS: ATORVASTATIN 40 MG TAB PO (20:35)
[2018-09-13 06:07] LABS: ADD MAN DIFF? NO; BASOPHIL # 0.1 10^3/ul (0.0-0.1); BASOPHILS % 0.9 % (0.0-2.0); EOSINOPHILS # 0.4 10^3/ul (0.0-0.5); EOSINOPHILS % 2.8 % (0.0-7.0); HEMATOCRIT 31.8 % (42.0-52.0); HEMOGLOBIN 10.2 g/dl (14.0-18.0); LYMPHOCYTES # 2.1 10^3/ul (0.8-2.9); LYMPHOCYTES % 14.2 % (15.0-51.0); MEAN CORPUSCULAR HEMOGLOBIN 24.1 pg (29.0-33.0); MEAN CORPUSCULAR HGB CONC 32.1 g/dl (32.0-37.0); MEAN CORPUSCULAR VOLUME 75.2 fl (82.0-101.0); MEAN PLATELET VOLUME 9.5 fl (7.4-10.4); MONOCYTES % 6.8 % (0.0-11.0); NEUTROPHILS % 74.8 % (39.0-77.0); PLATELET COUNT 622 10^3/UL (140-415); RED BLOOD COUNT 4.23 10^6/ul (4.70-6.10); RED CELL DISTRIBUTION WIDTH 17.9 % (11.5-14.5)
[2018-09-13 06:07] LABS: WHITE BLOOD COUNT 14.8 10^3/ul (4.8-10.8)
[2018-09-13 06:42] LABS: ANION GAP 9 (5-13); BLOOD UREA NITROGEN 15 mg/dl (7-20); CARBON DIOXIDE 26 mmol/L (21-31); CHLORIDE 103 mmol/L (97-110); CREATININE 1.73 mg/dl (0.61-1.24); Estimated GFR 40 mL/min (>60); GLUCOSE 106 mg/dl (70-220); POTASSIUM 4.3 mmol/L (3.5-5.1); SODIUM 138 mmol/L (135-144)
[2018-09-13] MEDS: METOPROLOL (XL) 25 MG TAB PO (08:28)
[2018-09-13] MEDS: LUBIPROSTONE 24 MCG CAP PO ×2 (08:28→20:40)
[2018-09-13] MEDS: POLYETHYLENE GLYCOL 17 GM PACKET PO ×2 (08:29→20:40)
[2018-09-13] MEDS: AMIODARONE 200 MG TAB PO ×2 (08:29→20:41)
[2018-09-13] MEDS: ASPIRIN 81 MG TAB PO (08:29)
[2018-09-13] MEDS: DOCUSATE SODIUM 100 MG CAP PO (08:29)
[2018-09-13] MEDS: NEOMYC/POLYMYX/BACIT 30 GM OINT TOP ×2 (08:30→20:41)
[2018-09-13] MEDS: ATORVASTATIN 40 MG TAB PO (20:40)
[2018-09-14] MEDS: ASPIRIN 81 MG TAB PO (08:19)
[2018-09-14] MEDS: LUBIPROSTONE 24 MCG CAP PO (08:19)
[2018-09-14] MEDS: DOCUSATE SODIUM 100 MG CAP PO (08:19)
[2018-09-14] MEDS: POLYETHYLENE GLYCOL 17 GM PACKET PO ×2 (08:19→08:25)
[2018-09-14] MEDS: NEOMYC/POLYMYX/BACIT 30 GM OINT TOP (08:19)
[2018-09-14] MEDS: METOPROLOL (XL) 25 MG TAB PO (08:20)
[2018-09-14] MEDS: AMIODARONE 200 MG TAB PO (08:23)
[2018-09-14 10:59] LABS: ADD MAN DIFF? NO
[2018-09-14 11:03] LABS: WHITE BLOOD COUNT 14.5 10^3/ul (4.8-10.8)
[2018-09-14 11:03] LABS: BASOPHIL # 0.1 10^3/ul (0.0-0.1); BASOPHILS % 0.8 % (0.0-2.0); EOSINOPHILS # 0.4 10^3/ul (0.0-0.5); EOSINOPHILS % 2.9 % (0.0-7.0); HEMATOCRIT 34.2 % (42.0-52.0); HEMOGLOBIN 10.8 g/dl (14.0-18.0); LYMPHOCYTES # 1.5 10^3/ul (0.8-2.9); LYMPHOCYTES % 10.1 % (15.0-51.0); MEAN CORPUSCULAR HEMOGLOBIN 23.8 pg (29.0-33.0); MEAN CORPUSCULAR HGB CONC 31.6 g/dl (32.0-37.0); MEAN CORPUSCULAR VOLUME 75.3 fl (82.0-101.0); MEAN PLATELET VOLUME 9.2 fl (7.4-10.4); NEUTROPHIL # 11.5 10^3/ul (1.6-7.5); NEUTROPHILS % 78.8 % (39.0-77.0); RED BLOOD COUNT 4.54 10^6/ul (4.70-6.10); RED CELL DISTRIBUTION WIDTH 17.8 % (11.5-14.5)
[2018-09-14 11:10] LABS: PLATELET COUNT 691 10^3/UL (140-415)
[2018-09-14 11:23] LABS: ANION GAP 12 (5-13); BLOOD UREA NITROGEN 17 mg/dl (7-20); CALCIUM 9.3 mg/dl (8.4-10.2); CARBON DIOXIDE 24 mmol/L (21-31); CHLORIDE 102 mmol/L (97-110); CREATININE 1.69 mg/dl (0.61-1.24); Estimated GFR 41 mL/min (>60); GLUCOSE 103 mg/dl (70-220); POTASSIUM 4.1 mmol/L (3.5-5.1); SODIUM 138 mmol/L (135-144)
== END 2018-09-14 13:40 | disposition home or self-care (01) | DRG 234 ==
LOC: SDS 08:07 → TEL 08-30 00:27 → ICU 09-01 07:58 → 6WM 09-05 17:31 → SDS 08:07 → TEL 13:35 → ICU 09-01 13:57 → SDS 13:00 → REC 13:01 → TEL 13:35
PROC: 02100Z9 Bypass Coronary Artery, One Artery from Left Internal Mammary, Open Approach (ICD-10-PCS; principal; 2018-08-29 10:58)
PROC: 4A023N7 Measurement of Cardiac Sampling and Pressure, Left Heart, Percutaneous Approach (ICD-10-PCS; 2018-08-29 10:58)
PROC: 021309W Bypass Coronary Artery, Four or More Arteries from Aorta with Autologous Venous Tissue, Open Approach (ICD-10-PCS; 2018-08-29 10:58)
PROC: 06BP4ZZ Excision of Right Saphenous Vein, Percutaneous Endoscopic Approach (ICD-10-PCS; 2018-08-29 10:58)
PROC: 07TM0ZZ Resection of Thymus, Open Approach (ICD-10-PCS; 2018-08-29 10:58)
PROC: 5A1221Z Performance of Cardiac Output, Continuous (ICD-10-PCS; 2018-08-29 10:58)
PROC: B24BZZ4 Ultrasonography of Heart with Aorta, Transesophageal (ICD-10-PCS; 2018-08-29 10:58)
PROC: B2011ZZ Plain Radiography of Multiple Coronary Arteries using Low Osmolar Contrast (ICD-10-PCS; 2018-08-29 10:58)
PROC: 30233K1 Transfusion of Nonautologous Frozen Plasma into Peripheral Vein, Percutaneous Approach (ICD-10-PCS; 2018-08-29 10:58)
PROC: 30233N1 Transfusion of Nonautologous Red Blood Cells into Peripheral Vein, Percutaneous Approach (ICD-10-PCS; 2018-08-29 10:58)
PROC: 30233R1 Transfusion of Nonautologous Platelets into Peripheral Vein, Percutaneous Approach (ICD-10-PCS; 2018-08-29 10:58)
DX: I25.10 Atherosclerotic heart disease of native coronary artery without angina pectoris (principal); N17.9 Acute kidney failure, unspecified; K56.7 Ileus, unspecified; E78.5 Hyperlipidemia, unspecified; I25.82 Chronic total occlusion of coronary artery; I12.9 Hypertensive chronic kidney disease with stage 1 through stage 4 chronic kidney disease, or unspecified chronic kidney disease; Z68.28 Body mass index [BMI] 28.0-28.9, adult; N18.3 Chronic kidney disease, stage 3 (moderate); Z87.891 Personal history of nicotine dependence; I48.0 Paroxysmal atrial fibrillation; E66.9 Obesity, unspecified; K59.00 Constipation, unspecified; D50.9 Iron deficiency anemia, unspecified; D72.829 Elevated white blood cell count, unspecified
CPT/HCPCS: 36430; 36592; 36600; 71045; 71046; 74018; 80048; 80061; 81003; 82803; 82962; 83036; 83605; 83735; 84100; 84132; 85014; 85025; 85610; 85730; 86850; 86900; 86901; 86920; 86945; 87040; 87081; 87086; 88304; 93005; 93312; 93320; 93458; 93880; 94002; 94003; 94770; 97110; 97116; 97162; 97167; 97530; 97535

== ENCOUNTER → 2018-09-23 | Outpatient (CLI) | payer BC | END | disposition home or self-care (01) | LOC: RAD 12:29 | DX: R05 Cough (principal) | CPT/HCPCS: 71046 ==